=== PATIENT | male | born 1945 | race Caucasian/White ===

== ENCOUNTER 2018-12-02 19:31 | Observation (INO) ==
--- NOTE | 2018-12-02 20:33 | DR.N/VMALE ---
HPI Time Seen Time Seen by Provider: 12/02/18 19:40 Primary Care Physician Primary Care Physician: ELEONORA Complaints Chief Complaint:: PT STATES THAT EARLIER HE BEGAN FEELING NAUSEA AND VOMITING. PT DENIES ANY PAIN OR OTHER PROBLEMS. Self Treatment fo Chief Complaint: NONE Source History Provided: Patient Mode of Arrival Mode of Arrival: Wheelchair Timing Onset of Chief Complaint: 12/02/18 PMH PMH Past Medical History: Yes Past Medical History: Coronary Artery Disease and Hypertension Past Surgical History: Yes Surgical History: Angioplasty/Stents and Ortho Surgery Past Surgical History Comment: BILATERAL KNEE AND HIPS REPLACED AND LEFT SHOULDER REPAIR Family History History of Family Medical Conditions: Yes Family Medical History: [place], Coronary Artery Disease and Hypertension Social History Does patient currently use any type of tobacco product: No Have you used tobacco products in the last 12 months: No Type of Tobacco Use: None Does any household member use tobacco: No Alcohol Use: None Do you use any recreational Drugs:: No Lives With: Family and Significant Other Lives Where: Home infectious screening In the last 2 months have you had wt loss of >10#?: NO Have you had fever, night sweats or hemotysis?: No Have you traveled outside the country in the last 6 months?: No Isolation: Standard PE Vital Signs Vitals: Temperature 102.5 F Pulse Rate [Apical] 78 Pulse Rate 94 Respiratory Rate 20 Blood Pressure [Left Arm] 152/71 Blood Pressure 174/103 O2 Sat by Pulse Oximetry 93 ROR Labs Reviewed Result Diagrams: 12/02/18 20:52 12/02/18 20:52 Laboratory: WBC 7.0 X10^3/uL (3.6-10.0) 12/02/18 20:52 RBC 4.86 X10^6/uL (4.7-6.0) 12/02/18 20:52 Hgb 14.8 g/dL (13.5-18.0) 12/02/18 20:52 Hct 43.7 % (42.0-54.0) 12/02/18 20:52 MCV 89.8 fL (80.0-100.0) 12/02/18 20:52 MCH 30.4 pg (27.0-34.0) 12/02/18 20:52 MCHC 33.9 g/dL (33.0-35.0) 12/02/18 20:52 RDW 15.3 % (11.6-16.5) 12/02/18 20:52 Plt Count 206 X10^3/uL (150.0-450.0) 12/02/18 20:52 MPV 8.4 fL (7.4-11.0) 12/02/18 20:52 Neut % (Auto) 75.4 % (42.0-75.0) H 12/02/18 20:52 Lymph % (Auto) 15.1 % (21.0-51.0) L 12/02/18 20:52 Wells % (Auto) 8.7 % (0.0-13.0) 12/02/18 20:52 Eos % (Auto) 0.0 % (0.9-2.9) L 12/02/18 20:52 Baso % (Auto) 0.8 % (0.2-1.0) 12/02/18 20:52 Neut # (Auto) 5.3 x10^3/uL (2.2-4.8) H 12/02/18 20:52 Lymph # (Auto) 1.1 X10^3/uL (1.3-2.9) L 12/02/18 20:52 Wells # (Auto) 0.6 x10^3/uL (0.3-0.8) 12/02/18 20:52 Eos # (Auto) 0.0 x10^3/uL (0.0-0.2) 12/02/18 20:52 Baso # (Auto) 0.1 X10^3/uL (0.0-0.1) 12/02/18 20:52 Absolute Nucleated RBC 0.1 /100WBC 12/02/18 20:52 Sample Site Lbra 12/02/18 23:23 ABG pH 7.530 (7.35-7.45) H 12/02/18 23:23 ABG pCO2 31.0 mmHg (35.0-45.0) L 12/02/18 23:23 ABG pO2 75.0 mmHg (80.0-100.0) L 12/02/18 23:23 ABG HCO3 25.9 mmol/L (22-26) 12/02/18 23:23 ABG O2 Saturation 96.0 % (90-100) 12/02/18 23:23 ABG Base Excess 3.6 mmol/L (-2.0-2.0) H 12/02/18 23:23 Arash Test Na 12/02/18 23:23 A-a Gradient 36.0 mmHg 12/02/18 23:23 FiO2 21.0 12/02/18 23:23 Blood Gas Comments Eliud abg well-mtf 12/02/18 23:23 Sodium 132 mmol/L (136-145) L 12/02/18 20:52 Corrected Sodium 133 mmol/L (136-145) L 12/02/18 20:52 Potassium 4.2 mmol/L (3.5-5.1) 12/02/18 20:52 Chloride 96 mmol/L (98-107) L 12/02/18 20:52 Carbon Dioxide 24.9 mmol/L (21-32) 12/02/18 20:52 BUN 31 mg/dL (7-18) H 12/02/18 20:52 Creatinine 1.36 mg/dL (0.70-1.30) H 12/02/18 20:52 Est GFR (MDRD) Af Amer > 60 (>60) 12/02/18 20:52 Est GFR (MDRD) Non-Af 55 (>60) L 12/02/18 20:52 Glucose 139 mg/dL (65-99) H 12/02/18 20:52 Lactic Acid 2.4 mmol/L (0.4-2.0) H 12/02/18 20:52 Calcium 9.1 mg/dL (8.5-10.1) 12/02/18 20:52 Corrected Calcium TNP 12/02/18 20:52 Total Bilirubin 0.80 mg/dL (0.2-1.0) 12/02/18 20:52 AST 27 Units/L (15-37) 12/02/18 20:52 ALT 39 Units/L (12-78) 12/02/18 20:52 Alkaline Phosphatase 93 Units/L (46-116) 12/02/18 20:52 Creatine Kinase 151 Units/L (39-308) 12/03/18 00:22 CK-MB (CK-2) 1.0 ng/mL (0-4.0) 12/03/18 00:22 CK/CKMB % Calc 0.7 % (<4) 12/03/18 00:22 Troponin I 0.07 ng/mL (0-1.5) 12/03/18 00:22 C-Reactive Protein 1.70 mg/L (0-3.0) 12/02/18 20:52 B-Natriuretic Peptide 120 pg/mL (0-79) H 12/02/18 20:52 Total Protein 7.8 g/dL (6.4-8.2) 12/02/18 20:52 Albumin 4.0 g/dL (3.4-5.0) 12/02/18 20:52 Globulin 3.8 g/dL (2.5-4.5) 12/02/18 20:52 Albumin/Globulin Ratio 1.1 Ratio (1.1-2.1) 12/02/18 20:52 Amylase 36 Units/L (25-115) 12/02/18 20:52 Lipase 113 Units/L (73-393) 12/02/18 20:52 Specimen Type Clean catch urine 12/02/18 21:15 Urine Color Trista (YELLOW) 12/02/18 21:15 Urine Appearance Clear (CLEAR) 12/02/18 21:15 Urine pH 5.0 (5.0 - 8.0) 12/02/18 21:15 Ur Specific [place] 1.025 (1.000-1.030) 12/02/18 21:15 Urine Protein 3+ (NEGATIVE) 12/02/18 21:15 Urine Glucose (UA) Negative (NEGATIVE) 12/02/18 21:15 Urine Ketones Negative (NEGATIVE) 12/02/18 21:15 Urine Occult Blood 3+ (NEGATIVE) 12/02/18 21:15 Urine Nitrite Negative (NEGATIVE) 12/02/18 21:15 Urine Bilirubin Negative (NEGATIVE) 12/02/18 21:15 Urine Urobilinogen Normal (NORMAL) 12/02/18 21:15 Ur Leukocyte Esterase Negative (NEGATIVE) 12/02/18 21:15 Urine RBC 0-2 /HPF (NONE SEEN) 12/02/18 21:15 Urine WBC None seen /HPF (NONE SEEN) 12/02/18 21:15 Ur Squamous Epith Cells Rare /HPF (NEGATIVE) 12/02/18 21:15 Urine Bacteria Negative /HPF (NEGATIVE) 12/02/18 21:15 Urine Mucus Moderate /HPF (NEGATIVE) 12/02/18 21:15 Ur Culture Indicated? No/not indicated 12/02/18 21:15 Influenza Type A (PCR) Negative (NEGATIVE) 12/02/18 22:54 Influenza Type B (PCR) Negative (NEGATIVE) 12/02/18 22:54 Diagnosis Discharge Problem: Pulmonary congestion, Nausea and vomiting in adult patient Fever Qualifiers: Fever type: unspecified Qualified Code(s): R50.9 - Fever, unspecified Instructions Instructions: Nausea and Vomiting, Adult Heart Failure, [id number] Fever, Adult, [id number]
[2018-12-02 21:04] LABS: BASOPHILS # (AUTO) 0.1 X10^3/uL (0.0-0.1); BASOPHILS % (AUTO) 0.8 % (0.2-1.0); HEMATOCRIT 43.7 % (42.0-54.0); HEMOGLOBIN 14.8 g/dL (13.5-18.0); LYMPHOCYTES # (AUTO) 1.1 X10^3/uL (1.3-2.9); LYMPHOCYTES % (AUTO) 15.1 % (21.0-51.0); MEAN CORPUSCULAR HEMOGLOBIN 30.4 pg (27.0-34.0); MEAN CORPUSCULAR HGB CONC 33.9 g/dL (33.0-35.0); MEAN CORPUSCULAR VOLUME 89.8 fL (80.0-100.0); MEAN PLATELET VOLUME 8.4 fL (7.4-11.0); MONOCYTES # (AUTO) 0.6 x10^3/uL (0.3-0.8); MONOCYTES % (AUTO) 8.7 % (0.0-13.0); NEUTROPHILS # (AUTO) 5.3 x10^3/uL (2.2-4.8); NEUTROPHILS % (AUTO) 75.4 % (42.0-75.0); PLATELET COUNT 206 X10^3/uL (150.0-450.0); RED BLOOD COUNT 4.86 X10^6/uL (4.7-6.0); RED CELL DISTRIBUTION WIDTH 15.3 % (11.6-16.5)
[2018-12-02 21:14] LABS: AMYLASE 36 Units/L (25-115); LIPASE 113 Units/L (73-393)
[2018-12-02 21:24] LABS: BLOOD UREA NITROGEN 31 mg/dL (7-18); CALCIUM 9.1 mg/dL (8.5-10.1); CARBON DIOXIDE 24.9 mmol/L (21-32); CHLORIDE 96 mmol/L (98-107); COR NA(FOR HYPERGLY) 133 mmol/L (136-145); CREATININE 1.36 mg/dL (0.70-1.30); SODIUM 132 mmol/L (136-145); TROPONIN I 0.04 ng/mL (0-1.5); eGFR NON BLACK RACES 55 (>60)
[2018-12-02 21:26] LABS: LACTIC ACID 2.4 mmol/L (0.4-2.0)
[2018-12-02 21:29] LABS: ALANINE AMINOTRANSFERASE 39 Units/L (12-78); ALKALINE PHOSPHATASE 93 Units/L (46-116); ASPARTATE AMINO TRANSFERASE 27 Units/L (15-37); CKMB % 0.8 % (<4); CREATINE KINASE 126 Units/L (39-308); CREATINE KINASE MB < 1.0 ng/mL (0-4.0); TOTAL PROTEIN 7.8 g/dL (6.4-8.2)
[2018-12-02 21:31] LABS: B-TYPE NATRIURETIC PEPTIDE 120 pg/mL (0-79)
[2018-12-02 21:32] LABS: BILIRUBIN,URINE NEGATIVE (NEGATIVE); BLOOD/HEMOGLOBIN,URINE 3+ (NEGATIVE); GLUCOSE, URINE NEGATIVE (NEGATIVE); KETONES,URINE NEGATIVE (NEGATIVE); LEUKOCYTE ESTERASE ,URINE NEGATIVE (NEGATIVE); NITRITES,URINE NEGATIVE (NEGATIVE); PROTEIN,URINE 3+ (NEGATIVE); UROBILINOGEN,URINE NORMAL (NORMAL)
[2018-12-02 21:33] LABS: APPEARANCE,URINE CLEAR (CLEAR); COLOR,URINE AMBER (YELLOW)
[2018-12-02 21:39] LABS: BACTERIA,URINE NEGATIVE /HPF (NEGATIVE); RBC,URINE 0-2 /HPF (NONE SEEN); SQUAMOUS EPITHELIAL CELL,UR RARE /HPF (NEGATIVE)
[2018-12-02 21:40] LABS: MUCUS,URINE MODERATE /HPF (NEGATIVE)
--- NOTE | 2018-12-02 22:32 | RAD ---
History: Pain Exam: Acute abdominal series Comparison: None Technique: Upright chest and supine upright views of the abdomen. Findings: The heart is mildly enlarged. The pulmonary vessels are slightly engorged centrally. The lungs are hypoinflated with mild linear densities scattered along the lung bases. The gas pattern is unremarkable. There is a 3 mm stone along the lower pole right kidney with bilateral hip replacements which are intact and in good position. IMPRESSION: Mild cardiomegaly and mild central pulmonary congestion with mild discoid atelectasis or scarring along the lung bases. Nonspecific gas pattern. Tiny right renal stone . Bilateral hip replacements. Reported By:
[2018-12-02] MEDS ORDERED: TYLENOL 325 MG TAB PO ONE ×2 (22:52→22:57)
[2018-12-02 23:34] LABS: ABG BASE EXCESS 3.6 mmol/L (-2.0-2.0); ABG HCO3 25.9 mmol/L (22-26)
[2018-12-02] MEDS ORDERED: LEVAQUIN TAB 500 MG PO ONE (23:46)
[2018-12-02] MEDS ORDERED: LEVAQUIN TAB 500 MG ONE (23:49)
[2018-12-03 00:48] LABS: CKMB % 0.7 % (<4); TROPONIN I 0.07 ng/mL (0-1.5)
[2018-12-03] MEDS ORDERED: TORADOL 30 MG VIAL ONE (01:13)
[2018-12-03] MEDS ORDERED: NS 1000 ML 1,000 ML ONE (01:13)
[2018-12-03] MEDS ORDERED: TORADOL 30 MG VIAL IVP ONE (01:13)
[2018-12-03] MEDS ORDERED: NITROSTAT SL PRN (01:59)
[2018-12-03] MEDS ORDERED: NS 1000 ML 1,000 ML IV SCH ×2 (02:00→09:00)
[2018-12-03 06:00] VITALS: BMI 38.2
[2018-12-03 06:44] LABS: BASOPHILS % (AUTO) 0.2 % (0.2-1.0); HEMATOCRIT 41.2 % (42.0-54.0); HEMOGLOBIN 13.9 g/dL (13.5-18.0); LYMPHOCYTES # (AUTO) 1.5 X10^3/uL (1.3-2.9); LYMPHOCYTES % (AUTO) 20.5 % (21.0-51.0); MEAN CORPUSCULAR HEMOGLOBIN 30.5 pg (27.0-34.0); MEAN CORPUSCULAR HGB CONC 33.6 g/dL (33.0-35.0); MEAN CORPUSCULAR VOLUME 90.7 fL (80.0-100.0); MEAN PLATELET VOLUME 8.6 fL (7.4-11.0); MONOCYTES # (AUTO) 1.6 x10^3/uL (0.3-0.8); MONOCYTES % (AUTO) 21.2 % (0.0-13.0); NEUTROPHILS # (AUTO) 4.2 x10^3/uL (2.2-4.8); NEUTROPHILS % (AUTO) 58.1 % (42.0-75.0); PLATELET COUNT 193 X10^3/uL (150.0-450.0); RED BLOOD COUNT 4.54 X10^6/uL (4.7-6.0); RED CELL DISTRIBUTION WIDTH 15.7 % (11.6-16.5); WHITE BLOOD COUNT 7.3 X10^3/uL (3.6-10.0)
[2018-12-03 07:11] LABS: ALANINE AMINOTRANSFERASE 36 Units/L (12-78); ALBUMIN 3.6 g/dL (3.4-5.0); ALKALINE PHOSPHATASE 80 Units/L (46-116); ASPARTATE AMINO TRANSFERASE 23 Units/L (15-37); BLOOD UREA NITROGEN 37 mg/dL (7-18); CALCIUM 8.5 mg/dL (8.5-10.1); CARBON DIOXIDE 26.9 mmol/L (21-32); CHLORIDE 98 mmol/L (98-107); CHOL/HDL RATIO 5.6 (0.0-5.0); CHOLESTEROL 161 mg/dL (0-200); CREATININE 1.44 mg/dL (0.70-1.30); HDL CHOLESTEROL 29 mg/dL (40-60); MAGNESIUM 1.8 mg/dL (1.7-2.9); SODIUM 134 mmol/L (136-145); TOTAL PROTEIN 6.9 g/dL (6.4-8.2); TRIGLYCERIDES 113 mg/dL (0-150); eGFR NON BLACK RACES 51 (>60)
[2018-12-03 07:19] LABS: CKMB % 0.6 % (<4); CREATINE KINASE MB 1.1 ng/mL (0-4.0); TROPONIN I 0.06 ng/mL (0-1.5)
[2018-12-03 07:30] LABS: PLATELET MORPHOLOGY COMMENT NORMAL (NORMAL)
[2018-12-03] MEDS ORDERED: LINZESS PO ONE (08:40)
[2018-12-03] MEDS ORDERED: NS 1000 ML 1,000 ML IV ONE (08:41)
[2018-12-03] MEDS ORDERED: ZOFRAN INJ 4 MG VIAL IVP PRN (08:53)
[2018-12-03] MEDS: ULTRAM PO SCH ×2 (08:53→20:15)
[2018-12-03] MEDS: LASIX IVP SCH (09:03)
[2018-12-03] MEDS: ZETIA TAB 10 MG PO SCH (09:04)
[2018-12-03] MEDS: MICRO K EXTEN CAP 10 MEQ PO SCH (09:04)
[2018-12-03] MEDS: TOPROL XL PO SCH ×2 (09:04→20:16)
[2018-12-03] MEDS: COZAAR PO SCH (09:04)
[2018-12-03] MEDS: ZYLOPRIM PO SCH (09:04)
[2018-12-03] MEDS: NexIUM PO SCH (09:04)
[2018-12-03] MEDS: PLAVIX PO SCH (09:04)
[2018-12-03] MEDS: PATIENT'S HOME MEDICATION (Naproxen [Naproxen] 1 TAB) PO SCH ×3 (09:10→20:16)
[2018-12-03] MEDS: ZOFRAN INJ 4 MG VIAL IVP PRN ×2 (10:03→17:24)
[2018-12-03] MEDS: MAGNESIUM SULFATE 1 GRAM/100 mL PREMIX 1 GM/100 ML BAG IV PRN ×2 (10:38→12:01)
[2018-12-03 11:33] LABS: CKMB % 0.5 % (<4); CREATINE KINASE MB 1.2 ng/mL (0-4.0); TROPONIN I 0.04 ng/mL (0-1.5)
--- NOTE | 2018-12-03 13:54 | DR.H&P ---
H&P - History & Physical for Day of: H&P Date: 12/03/18 - Chief Complaint Chief Complaint: FEVER, NAUSEA, VOMITING - History of Present Illness History of Present Illness: IS A 73 YEAR OLD PATIENT OF OURS WHO PRESENTED TO THE EMERGENCY ROOM WITH COMPLAINTS OF FEVER, NAUSEA, AND VOMITING. HE REPORTS THAT SYMPTOMS STARTED EARLIER IN THE DAY. ON ARRIVAL, VITALS WERE 100.7-94-20-92%RA-174/103. LABS WERE OBTAINED. ABNORMAL LAB VALUES INCLUDE THE FOLLOWING: SODIUM 132, CHLORIDE 96, BUN 31, CREATININE 1.36, GLUCOSE 139, LACTIC ACID 2.4, BNP 120. BLOOD CULTURES OBTAINED AND PENDING. CARDIAC ENZYMES WITHIN NORMAL LIMITS. URINALYSIS IS UNREMARKABLE. INFLUENZA NEGATIVE. ABDOMINAL SERIES WAS OBTAINED AND REVEALED: Mild cardiomegaly and mild central pulmonary congestion with mild discoid atelectasis or scarring along the lung bases. N onspecific gas pattern. Tiny right renal stone. Bilateral hip replacements. EKG REVEALED SINUS RHYTHM. INCOMPLETE RIGHT BUNDLE BRANDCH BLOCK. HR 73. HE WAS GIVEN A NORMAL SALINE BOLUS X 1, LEVAQUIN 500MG IV X 1, TYLENOL 650MG PO X 1, AND TORADOL 30MG IV X 1 IN THE ER. HE WAS ADMITTED FOR FURTHER EVALUATION AND TREATMENT OF FEVER, WEAKNESS, N/V, AND PULMONARY CONGESTION. HE WAS STARTED ON NORMAL SALINE AT KVO, ROCEPHIN 1GM IV DAILY, LASIX 40MG IV DAILY, AND HOME MEDICATIONS WERE RESUMED. WE PLAN TO FOLLOW UP WITH AM LABS AND CONTINUE TO MONITOR. - Past Medical History Past Medical History: Coronary Artery Disease, Hypertension - Past Surgical History Surgical History: Angioplasty/Stents, CABG/Valve Surgery, Ortho Surgery - Family History Family Medical History: [place], Coronary Artery Disease - Social History Does patient currently use any type of tobacco product: No Have you used tobacco products in the last 12 months: No Type of Tobacco Use: None Does any household member use tobacco: No Alcohol Use: None Drug Use: None - Medications Home Medications: Iodinated Contrast- Oral and IV Dye Allergy (Verified 12/02/18 20:17) Penicillins Allergy (Verified 12/02/18 19:48) shellfish derived Allergy (Verified 12/02/18 19:51) CONTINUE taking the following medications allopurinol 300 mg PO QDAY 12/02/18 [History] clopidogrel 1 tab PO QDAY 12/02/18 [History] esomeprazole magnesium 1 cap PO QDAY 12/02/18 [History] ezetimibe 10 mg PO QDAY 12/02/18 [History] gabapentin 600 mg PO QHS 12/02/18 [History] hydrochlorothiazide 25 mg PO QDAY 12/02/18 [History] losartan 50 mg PO QDAY 12/02/18 [History] metoprolol succinate 75 mg PO BID 12/02/18 [History] naproxen 1 tab PO BID 12/02/18 [History] nitroglycerin 0.4 mg SUBLINGUAL DIRECTED PRN 12/02/18 [History] potassium chloride 10 meq PO QDAY 12/02/18 [History] rosuvastatin 40 mg PO QHS 12/02/18 [History] tramadol 1 tab PO BID 12/02/18 [History] - Physical Exam Vital Signs: Temperature 98.5 F Pulse Rate [Right Brachial] 68 Pulse Rate [Apical] 78 Pulse Rate 94 Respiratory Rate 20 Blood Pressure [Right Arm] 156/72 Blood Pressure [Left Arm] 152/71 Blood Pressure 174/103 O2 Sat by Pulse Oximetry 93 - Allergies Allergies/Adverse Reactions: Allergies Allergy/AdvReac Type Severity Reaction Status Date / Time Iodinated Contrast- Oral and Allergy Verified 12/02/18 20:17 IV Dye Penicillins Allergy Verified 12/02/18 19:48 shellfish derived Allergy Verified 12/02/18 19:51
[2018-12-03 17:22] LABS: CKMB % 0.6 % (<4); CREATINE KINASE 183 Units/L (39-308); CREATINE KINASE MB < 1.0 ng/mL (0-4.0); TROPONIN I 0.03 ng/mL (0-1.5)
[2018-12-03] MEDS: NS 1000 ML 1,000 ML IV SCH ×2 (17:24→20:15)
[2018-12-03] MEDS ORDERED: PHENERGAN INJ 25 MG IV PRN (17:57)
[2018-12-03] MEDS ORDERED: NEURONTIN CAP 300 MG PO SCH (21:00)
[2018-12-03] MEDS ORDERED: CRESTOR TAB 10 MG PO SCH (21:00)
[2018-12-04 00:06] LABS: CKMB % 0.6 % (<4); CREATINE KINASE 165 Units/L (39-308); CREATINE KINASE MB < 1.0 ng/mL (0-4.0); TROPONIN I 0.04 ng/mL (0-1.5)
[2018-12-04 06:12] LABS: BASOPHILS % (AUTO) 0.7 % (0.2-1.0); EOSINOPHILS # (AUTO) 0.1 x10^3/uL (0.0-0.2); HEMATOCRIT 41.1 % (42.0-54.0); HEMOGLOBIN 13.9 g/dL (13.5-18.0); LYMPHOCYTES # (AUTO) 1.6 X10^3/uL (1.3-2.9); LYMPHOCYTES % (AUTO) 25.4 % (21.0-51.0); MEAN CORPUSCULAR HEMOGLOBIN 30.6 pg (27.0-34.0); MEAN CORPUSCULAR HGB CONC 33.8 g/dL (33.0-35.0); MEAN CORPUSCULAR VOLUME 90.6 fL (80.0-100.0); MEAN PLATELET VOLUME 8.4 fL (7.4-11.0); MONOCYTES % (AUTO) 15.8 % (0.0-13.0); NEUTROPHILS # (AUTO) 3.6 x10^3/uL (2.2-4.8); NEUTROPHILS % (AUTO) 57.1 % (42.0-75.0); PLATELET COUNT 178 X10^3/uL (150.0-450.0); RED BLOOD COUNT 4.53 X10^6/uL (4.7-6.0); RED CELL DISTRIBUTION WIDTH 15.7 % (11.6-16.5); WHITE BLOOD COUNT 6.3 X10^3/uL (3.6-10.0)
[2018-12-04 06:35] LABS: ALANINE AMINOTRANSFERASE 33 Units/L (12-78); ALBUMIN 3.4 g/dL (3.4-5.0); ALKALINE PHOSPHATASE 78 Units/L (46-116); ASPARTATE AMINO TRANSFERASE 23 Units/L (15-37); BLOOD UREA NITROGEN 43 mg/dL (7-18); CALCIUM 8.1 mg/dL (8.5-10.1); CARBON DIOXIDE 27.9 mmol/L (21-32); CHLORIDE 97 mmol/L (98-107); CREATININE 1.62 mg/dL (0.70-1.30); SODIUM 133 mmol/L (136-145); TOTAL PROTEIN 6.7 g/dL (6.4-8.2); eGFR NON BLACK RACES 45 (>60)
[2018-12-04] MEDS: NexIUM PO SCH (08:36)
[2018-12-04] MEDS: MICRO K EXTEN CAP 10 MEQ PO SCH (08:36)
[2018-12-04] MEDS: ULTRAM PO SCH (08:36)
[2018-12-04] MEDS: TOPROL XL PO SCH (08:37)
[2018-12-04] MEDS: PATIENT'S HOME MEDICATION (Naproxen [Naproxen] 1 TAB) PO SCH (08:37)
[2018-12-04] MEDS: PLAVIX PO SCH (08:37)
[2018-12-04] MEDS: ZETIA TAB 10 MG PO SCH (08:37)
[2018-12-04] MEDS: ZYLOPRIM PO SCH (08:37)
[2018-12-04] MEDS: COZAAR PO SCH (08:37)
[2018-12-04] MEDS: LASIX IVP SCH (08:39)
[2018-12-04 08:55] VITALS: BP 109/58
== END 2018-12-04 11:40 | disposition home or self-care (01) ==
LOC: MED/SURG 19:39 → ER 19:39 → MED/SURG 12-03 01:49
PROVIDERS: ADMIT Obstetrics & Gynecology Obstetrics; ATTEND Internal Medicine
DX: I25.10 Atherosclerotic heart disease of native coronary artery without angina pectoris; R94.4 Abnormal results of kidney function studies; R50.9 Fever, unspecified; R06.02 Shortness of breath; R11.2 Nausea with vomiting, unspecified; Z95.1 Presence of aortocoronary bypass graft; Z96.643 Presence of artificial hip joint, bilateral; Z79.899 Other long term (current) drug therapy; I50.9 Heart failure, unspecified; R94.31 Abnormal electrocardiogram [ECG] [EKG]
CPT/HCPCS: 36415; 36600; 74022; 80053; 80061; 81001; 82150; 82550; 82553; 82803; 83605; 83690; 83735; 83880; 84484; 85025; 86140; 87040; 87502; 93005; 93306; 94760; 96365; 96367; 96374; 99284; A4222; G0378; J1885; J1940; J2405; J2550; J3475; J3490; J7030